=== PATIENT | male | born 1960 | race Caucasian/White ===

== ENCOUNTER 2020-05-17 09:25 | Emergency (ER) | payer OTHER ==
[~2020-05-17] VITALS: Ht 175.3 cm; Wt 89.8 kg
[2020-05-17] MEDS ORDERED: LANTUS100 UNITS/ SUB-Q (10:03)
[2020-05-17] MEDS ORDERED: IRBESARTAN75 MG PO (10:05)
[2020-05-17] MEDS ORDERED: HYDROXYZINE HCL50 MG PO (10:05)
[2020-05-17] MEDS ORDERED: GLUCOPHAGE XR750 MG PO (10:06)
[2020-05-17] MEDS ORDERED: JARDIANCE25 MG PO (10:06)
[2020-05-17] MEDS ORDERED: FLOMAX0.4 MG PO (10:08)
[2020-05-17] MEDS ORDERED: POLYETHYLENE GLY1 GM MISC (10:08)
[2020-05-17] MEDS ORDERED: UREA85 G1 TOP (10:09)
[2020-05-17] MEDS ORDERED: AMITRIPTYLINE100 MG PO (10:11)
[2020-05-17] MEDS ORDERED: VITAMIN D325 MCG PO (10:11)
[2020-05-17] MEDS ORDERED: BUSPIRONE HCL10 MG PO (10:12)
[2020-05-17] MEDS ORDERED: LIPITOR20 MG PO (10:12)
[2020-05-17] MEDS ORDERED: CETIRIZINE HCL10 MG PO (10:12)
[2020-05-17] MEDS ORDERED: VOLTAREN100 GM TOP (10:14)
[2020-05-17] MEDS ORDERED: DIVALPROEX SOD500 M1 PO (10:15)
[2020-05-17] MEDS ORDERED: FAMOTIDINE40 MG PO (10:16)
[2020-05-17] MEDS ORDERED: CYMBALTA60 MG PO (10:16)
[2020-05-17] MEDS ORDERED: NEURONTIN300 MG PO (10:17)
--- NOTE | 2020-05-17 15:46 | EKG ---
[facility] [address] [place] [address] Signed Sinus rhythm with 1st degree AV block Otherwise normal ECG No previous ECGs available Confirmed by JOSE HARO MD ([id number]) on 05/17/2020 3:45:52 PM Electronically Signed By: JOSE HARO MD 05/17/20 1546 PATIENT NAME: SACHA MUIR NAVEEN Electrocardiogram DATE OF : 64 PHYSICIAN: JOSE HARO MD REPORT #: [id number] REPORT IS CONFIDENTIAL AND NOT TO BE RELEASED WITHOUT AUTHORIZATION
== END 2020-05-17 13:39 | disposition home or self-care (01) ==
LOC: ED 09:25
DX: R55 Syncope and collapse (principal); E11.9 Type 2 diabetes mellitus without complications; I10 Essential (primary) hypertension; E78.00 Pure hypercholesterolemia, unspecified; Z79.899 Other long term (current) drug therapy; Z79.4 Long term (current) use of insulin
CPT/HCPCS: 70450; 71045; 72125; 80053; 81001; 83735; 84443; 84484; 85025; 87088; 93005; 93010; 99285-25

== ENCOUNTER 2022-04-26 08:34 | Emergency (ER) | payer OTHER ==
[~2022-04-26] VITALS: Ht 175.3 cm; Wt 89.8 kg
[~2022-04-26 08:34] MED LIST: AMITRIPTYLINE100 MG PO; BUSPIRONE HCL10 MG PO; CETIRIZINE HCL10 MG PO; CYMBALTA60 MG PO; DIVALPROEX SOD500 M1 PO; FAMOTIDINE40 MG PO; FLOMAX0.4 MG PO; GLUCOPHAGE XR750 MG PO; HYDROXYZINE HCL50 MG PO; IRBESARTAN75 MG PO; JARDIANCE25 MG PO; LANTUS100 UNITS/ SUB-Q; LIPITOR20 MG PO; NEURONTIN300 MG PO; POLYETHYLENE GLY1 GM MISC; UREA85 G1 TOP; VITAMIN D325 MCG PO; VOLTAREN100 GM TOP
[2022-04-26] MEDS ORDERED: LEVOTHYROXINE25 MC1 (08:54)
[2022-04-26] MEDS ORDERED: ASPIRIN81 MG PO (08:55)
[2022-04-26] MEDS ORDERED: ONDANSETRON ODT8 MG PO (09:39)
--- NOTE | 2022-04-26 15:26 | EKG ---
[facility] [address] [facility] [place], [place] [address] Signed Sinus rhythm with 1st degree AV block Otherwise normal ECG When compared with ECG of 17-MAY-2020 09:45, No significant change was found Confirmed by JOSE HARO MD ([id number]) on 04/26/2022 3:26:03 PM Electronically Signed By: JOSE HARO MD 04/26/22 1526 PATIENT NAME: SACHA MUIR Electrocardiogram DATE OF : 64 PHYSICIAN: JOSE HARO MD REPORT #: [id number] REPORT IS CONFIDENTIAL AND NOT TO BE RELEASED WITHOUT AUTHORIZATION
== END 2022-04-26 09:51 | disposition home or self-care (01) ==
LOC: ED 08:34
DX: B34.9 Viral infection, unspecified (principal); I10 Essential (primary) hypertension; E11.9 Type 2 diabetes mellitus without complications; E78.00 Pure hypercholesterolemia, unspecified; M10.9 Gout, unspecified; Z79.84 Long term (current) use of oral hypoglycemic drugs; Z79.899 Other long term (current) drug therapy; Z79.82 Long term (current) use of aspirin; Z20.822 Contact with and (suspected) exposure to COVID-19
CPT/HCPCS: 36415; 80053; 84484; 85025; 87502; 93005; 93010; 99285-25; C9803; J7030; U0003

== ENCOUNTER 2023-03-02 19:01 | Emergency (ER) | payer OTHER ==
[~2023-03-02] VITALS: Ht 175.3 cm; Wt 80.9 kg
[~2023-03-02 19:01] MED LIST changes: +ASPIRIN81 MG PO; +LEVOTHYROXINE25 MC1; +ONDANSETRON ODT8 MG PO
[2023-03-02 23:41] LABS: BASOPHILS 0.9 % (0-2); HEMATOCRIT 44.8 % (35.0-50.0); HEMOGLOBIN 14.6 g/dL (12.0-18.0); LYMPHOCYTES 28.4 % (24-44); MCH 27.8 (27-36); MCHC 32.7 g/dl (30-36); MONOCYTES 6.8 % (0-12); NEUTROPHILS 62.9 % (39-80); PLATELET COUNT 312 K/uL (140-440); RBC 5.27 M/ul (4.3-5.7); RDW 14.8 (10.5-15.0)
[2023-03-02 23:58] LABS: ALBUMIN 3.6 g/dL (3.4-5.0); ALBUMIN/GLOBULIN RATIO 1.06 (1.1-2.4); ANION GAP 10.9 (7-21); BILIRUBIN, TOTAL 0.2 ng/dL (0.2-1.0); BUN/CREATININE RATIO 14.85 (6.0-28.6); CALCIUM 9.4 mg/dL (8.5-10.1); CREATININE, SERUM 1.01 mg/dL (0.70-1.30); POTASSIUM 3.9 mmol/L (3.5-5.1)
[2023-03-03 02:03] VITALS: BP 159/75
== END 2023-03-03 01:55 | disposition home or self-care (01) ==
LOC: ED 19:01
PROVIDERS: Emergency Medicine
DX: R09.89 Other specified symptoms and signs involving the circulatory and respiratory systems (principal); I10 Essential (primary) hypertension; E11.40 Type 2 diabetes mellitus with diabetic neuropathy, unspecified; F32.A Depression, unspecified; F41.9 Anxiety disorder, unspecified; Z88.8 Allergy status to other drugs, medicaments and biological substances; Z79.899 Other long term (current) drug therapy; Z79.84 Long term (current) use of oral hypoglycemic drugs; Z79.82 Long term (current) use of aspirin
CPT/HCPCS: 36415; 70491; 80053; 85025; 99283-25; Q9967

== ENCOUNTER 2024-03-01 09:05 | Emergency (ER) | payer OTHER ==
[~2024-03-01] VITALS: Ht 177.8 cm; Wt 82.0 kg
[~2024-03-01 09:05] MED LIST changes: +AMITRIPTYLINE150 MG PO; -LEVOTHYROXINE25 MC1; +LEVOTHYROXINE25 MC1 PO
[2024-03-01] MEDS ORDERED: NORVASC10 MG PO (09:26)
[2024-03-01] MEDS ORDERED: ISOSORBIDE MONO30 MG PO (09:26)
[2024-03-01] MEDS ORDERED: SINGULAIR10 MG PO (09:27)
[2024-03-01] MEDS ORDERED: NEURONTIN400 MG PO (09:27)
[2024-03-01] MEDS ORDERED: METOPROLOL SUCC25 MG PO (09:29)
[2024-03-01] MEDS ORDERED: MORPHINE SULFATE 4 MG/ML VIAL IV ONE (09:30)
[2024-03-01] MEDS ORDERED: SODIUM CHLORIDE 0.9% 1,000 ML IV PRN (09:30)
[2024-03-01 09:32] LABS: BASOPHILS 6.4 % (0-2); EOSINOPHILS 0.9 % (0-6); HEMATOCRIT 41.6 % (35.0-50.0); HEMOGLOBIN 13.8 g/dL (12.0-18.0); MCHC 33.2 g/dl (30-36); MCV 90.5 fl (81-99); NEUTROPHILS 67.7 % (39-80); PLATELET COUNT 227 K/uL (140-440); RDW 15.3 (10.5-15.0)
[2024-03-01 09:52] LABS: ALBUMIN 3.4 g/dL (3.4-5.0); ALBUMIN/GLOBULIN RATIO 1.17 (1.1-2.4); ANION GAP 11.9 (7-21); BILIRUBIN, TOTAL 0.4 ng/dL (0.2-1.0); BUN/CREATININE RATIO 19.58 (6.0-28.6); CALCIUM 9.3 mg/dL (8.5-10.1); CREATININE, SERUM 0.97 mg/dL (0.70-1.30); POTASSIUM 3.9 mmol/L (3.5-5.1); PROTEIN, TOTAL 6.3 g/dL (6.4-8.2)
[2024-03-01] MEDS ORDERED: diphenhydrAMINE HCL 50 MG/ML VIAL IV ONE (10:00)
[2024-03-01] MEDS ORDERED: ACETAMINOPHEN 325 MG TAB PO ONE (10:00)
[2024-03-01] MEDS ORDERED: KETOROLAC TROMETHAMINE 15 MG/ML VIAL IV ONE (10:00)
[2024-03-01 10:30] LABS: MAGNESIUM 2.2 mg/dL (1.8-2.4)
[2024-03-01] MEDS ORDERED: ONDANSETRON ODT8 MG PO (10:46)
[2024-03-01 10:55] VITALS: BP 122/67
--- NOTE | 2024-03-03 12:26 | EKG ---
[facility] [address] [facility] [place] [address] Signed Sinus bradycardia with premature atrial complexes Otherwise normal ECG When compared with ECG of 23-JUL-2023 18:16, premature atrial complexes are now present ND interval has decreased QRS duration has decreased ST no longer elevated in Anterior leads QT has shortened Confirmed by John Mcclellan MD ([id number]) on 03/03/2024 12:26:35 PM Electronically Signed By: JOHN MCCLELLAN DO 03/03/24 1226 PATIENT NAME: SACHA MUIR NAVEEN Electrocardiogram DATE OF : 64 PHYSICIAN: JOHN MCCLELLAN DO REPORT #: [id number] REPORT IS CONFIDENTIAL AND NOT TO BE RELEASED WITHOUT AUTHORIZATION
== END 2024-03-01 10:55 | disposition other institution, planned readmission (95) ==
LOC: ED 09:05
PROVIDERS: Emergency Medicine
DX: S09.90XA Unspecified injury of head, initial encounter (principal); W19.XXXA Unspecified fall, initial encounter; R55 Syncope and collapse; I10 Essential (primary) hypertension; E78.00 Pure hypercholesterolemia, unspecified; M10.9 Gout, unspecified; E11.40 Type 2 diabetes mellitus with diabetic neuropathy, unspecified; Z88.8 Allergy status to other drugs, medicaments and biological substances; Z79.84 Long term (current) use of oral hypoglycemic drugs; Z79.890 Hormone replacement therapy; Z79.82 Long term (current) use of aspirin; Z79.899 Other long term (current) drug therapy
CPT/HCPCS: 36415; 70450; 72125; 80053; 83735; 84484; 85025; 93005; 93010; 96361; 96374; 96375; 99284-25; A9270; J1200; J1885; J2270; J7030

== ENCOUNTER 2025-03-27 10:23 | Emergency (ER) | payer OTHER ==
[~2025-03-27] VITALS: Ht 177.8 cm; Wt 90.6 kg
[~2025-03-27 10:23] MED LIST changes: +ISOSORBIDE MONO30 MG PO; +METOPROLOL SUCC25 MG PO; +NEURONTIN400 MG PO; +NORVASC10 MG PO; +SINGULAIR10 MG PO
[2025-03-27] MEDS ORDERED: IBLOOD GLUCOSE TEST STRIP 1 EA TEST XX ONE (10:30)
[2025-03-27 10:34] LABS: BASOPHILS 0.8 % (0.2-1.2); EOSINOPHILS 0.6 % (0.8-7.0); LYMPHOCYTES 18.4 % (21.8-53.1); MCH 28.2 PG (25.7-32.2); MCHC 32.9 g/dL (32.3-36.5); MCV 86.0 fL (79.0-92.2); MONOCYTES 7.2 % (5.3-12.2); NEUTROPHILS 72.7 % (34.0-67.9); RBC 4.85 M/uL (4.63-6.08)
[2025-03-27] MEDS ORDERED: TRAZODONE HCL100 MG PO (10:36)
[2025-03-27] MEDS ORDERED: HYDROCHLOROTH12.5 M1 PO (10:36)
[2025-03-27] MEDS ORDERED: MELATONIN5 M5 PO (10:38)
[2025-03-27] MEDS ORDERED: HYDROXYZINE HCL50 MG PO (10:39)
[2025-03-27] MEDS ORDERED: VITAMIN D325 MCG PO (10:39)
[2025-03-27] MEDS ORDERED: OXYCODONE HCL 5 MG TAB PO ONE (10:45)
[2025-03-27] MEDS ORDERED: KETOROLAC TROMETHAMINE 30 MG/ML VIAL IV ONE (10:45)
[2025-03-27] MEDS ORDERED: METOCLOPRAMIDE HCL 10 MG/2 ML SDV IV ONE (10:45)
[2025-03-27 10:53] LABS: ALT (SGPT) 21.0 U/L (14-59); AST (SGOT) 17.0 U/L (15-37); GLOMERULAR FILTRATION RATE,EST 60.0 mL/min (>60); PROTEIN, TOTAL 6.5 g/dL (6.4-8.2); UREA NITROGEN 22.0 mg/dL (7-18)
[2025-03-27 12:56] VITALS: BP 111/73
--- NOTE | 2025-03-28 12:03 | EKG ---
[facility] [address] [facility] [place], [place] [address] Signed Normal sinus rhythm Normal ECG No previous ECGs available Confirmed by John Mcclellan DO ([id number]) on 03/28/2025 12:03:40 PM Electronically Signed By: JOHN MCCLELLAN DO 03/28/25 1203 PATIENT NAME: SACHA MUIR NAVEEN Electrocardiogram DATE OF : 64 PHYSICIAN: JOHN MCCLELLAN DO REPORT #: [id number] REPORT IS CONFIDENTIAL AND NOT TO BE RELEASED WITHOUT AUTHORIZATION
== END 2025-03-27 12:52 | disposition home or self-care (01) ==
LOC: ED 10:23
PROVIDERS: Emergency Medicine
DX: R55 Syncope and collapse (principal); I10 Essential (primary) hypertension; E78.00 Pure hypercholesterolemia, unspecified; E11.40 Type 2 diabetes mellitus with diabetic neuropathy, unspecified; Z88.8 Allergy status to other drugs, medicaments and biological substances; Z79.84 Long term (current) use of oral hypoglycemic drugs; Z79.82 Long term (current) use of aspirin; Z79.890 Hormone replacement therapy; Z79.899 Other long term (current) drug therapy
CPT/HCPCS: 36415; 71045; 80053; 83735; 84484; 85025; 93005; 93010; 96374; 96375; 99284-25; J1885; J2765